=== PATIENT | male | born 1945 | race Caucasian/White ===

== ENCOUNTER 2021-10-31 07:02 | Day surgery (SDC) | payer MEDICARE, BC, SELFPAY ==
[2021-10-23 14:16] VITALS: BMI 27.8
[2021-10-31 07:17] VITALS: BP 146/74; PULSE 86; RESP 18; TEMP 36.4; O2SAT 96
--- NOTE | 2021-10-31 07:32 | P.CONAN_ITS ---
HPI - Anesthesia Eval Consult details Narrative: 75 M for colonoscopy CAD s/p CABG smoker [facility] Past Medical History Medical History CAD (coronary artery disease) Chronic renal insufficiency, stage III (moderate) Elevated cholesterol Emphysema lung HTN (hypertension) Hx of basal cell carcinoma Hx of bronchitis Hx of femoral artery thrombosis Myocardial infarction Peripheral arterial occlusive disease Pulmonary nodule Smoker Family History Family history of problems with anesthesia: No Surgical History Surgical History History of vascular surgery Hx of CABG Hx of colonoscopy Hx of right inguinal hernia repair History of Problems with Anesthesia: No Social History Social History Are you a primary clinical care coordinator to a significant other at home: No Do you presently have visiting nurse or other home services: No Patient Tobacco Use Status: Current everyday Tobacco user Tobacco use type: Cigarette Cigarettes Per Day: 6 Have you been hit, kicked, punched, or otherwise hurt by someone within the past year? If so, by whom?: No Are you DNR?: No Advance Directives: No Advance Directives Information Provided: Yes Advance Directives on File: No Meds Allergies Allergy/AdvReac Type Severity Reaction Status Date / Time No Known Allergies Allergy Verified 10/23/21 14:14 Active Medications: Current Medications Sodium Biphosphate/Sodium Phosphate (Sodium Phosphate,Vigo-Dibasic 133 Ml Enema) 133 ml IN ONCE PRN PRN Reason: Poor Colonoscopy Prep Results Home Medications Medication Instructions Recorded Confirmed Last Taken Type amlodipine 10 mg tablet 10 mg PO DAILY 10/23/21 10/23/21 Unknown History aspirin 81 mg chewable tablet 81 mg PO DAILY 10/23/21 10/23/21 Unknown History hydrochlorothiazide 12.5 mg tablet 12.5 mg PO DAILY 10/23/21 10/23/21 Unknown History losartan 100 mg tablet 100 mg PO DAILY 10/23/21 10/23/21 Unknown History metoprolol succinate 100 mg 100 mg PO DAILY 10/23/21 10/31/21 10/31/21 History tablet,extended release 24 hr mirtazapine 15 mg tablet 15 mg PO BEDTIME 10/23/21 10/23/21 Unknown History pravastatin 40 mg tablet 40 mg PO DAILY 10/23/21 10/23/21 Unknown History Exam Exam Date and Time: October 31, 2021 0732 Height,Weight and Vital Signs: Height 5 ft 4 in Weight 73.482 kg Last Vital Signs Temp 97.6 F 10/31/21 07:17 Pulse 86 10/31/21 07:17 Resp 18 10/31/21 07:17 BP 146/74 H 10/31/21 07:17 Pulse Ox 96 10/31/21 07:17 Airway Mallampati Class: II TM Dist: >3cm Neck ROM: Full Loose/Missing/Broken Teeth: Yes (Multiple missing , poor dentition ) Heart: S1, S2 Lungs: b/l breath sounds Assessment and Plan Assessment Anesthesia Assessment: Anesthesia Plan Discussed and Chart Reviewed Final Anesthetic Review Family History of Problems with Anesthesia: No History of Problems with Anesthesia: No NPO: Yes ASA Class: III Final Preanesthetic Review: Meds/Allgs Chart Reviewed, Consent Obtained/Reviewed and Anes Risks/Benef Reviewed Patient Risk: High Procedure Risk: Intermediate Anesthetic Plan Anesthetic Plan: MAC: Disposition: Standard PACU
[2021-10-31] MEDS: Lactated Ringers 1,000 ML 80 ML IVCONT (08:22)
[2021-10-31 09:24] VITALS: BP 83/42; PULSE 58; RESP 12; TEMP 36.1; O2SAT 93
--- NOTE | 2021-10-31 09:25 | P.BOP_ITS ---
Brief Operative Note Date of Service: 10/31/21 Pre-op diagnosis: Screening Post-op diagnosis: other (Colon polyp) Procedure: Colonoscopy to the cecum with biopsies, and bx/removal of polyp Surgeon: Víctor Chen Anesthesia: MAC Was an [employer] used for this Procedure?: No Estimated blood loss (mL): 2.0 Pathology: other (A. Polyp at 20cm B. Proximal ascending colon, R/O polyp vs. Inflammation) Condition: stable Disposition: PACU
[2021-10-31 09:39] VITALS: BP 92/52; PULSE 54; RESP 16; O2SAT 95
[2021-10-31 09:54] VITALS: BP 103/43; PULSE 55; RESP 18; TEMP 36.1; O2SAT 94
--- NOTE | 2021-10-31 20:26 | OP_ITS ---
SURGEON: Víctor Chen MD INDICATIONS: The patient presents for evaluation of colorectal cancer screening and prior history of tubular adenomas of the colon. Full consent was obtained from him for this, including risks of bleeding and perforation. PREOPERATIVE DIAGNOSIS: POSTOPERATIVE DIAGNOSIS: PROCEDURE PERFORMED: Colonoscopy to the cecum with biopsy and removal of polyp, and biopsies. ESTIMATED BLOOD LOSS: COMPLICATIONS: ANESTHESIA: Monitored anesthesia care. ASSISTANTS: SPECIMENS: PREOPERATIVE DIAGNOSES: Colorectal cancer screening and personal history of tubular adenoma of the colon. POSTOPERATIVE DIAGNOSES: Colorectal cancer screening and personal history of tubular adenoma of the colon, colon polyp, diverticulosis and internal hemorrhoids. DESCRIPTION OF PROCEDURE: The patient was placed in the left lateral decubitus position. The digital rectal exam revealed no abnormalities. The Olympus video pediatric colonoscope was entered into the rectum and advanced to the cecum with the assistance of abdominal wall pressure. Once in the cecum, I did identify normal-appearing cecal pouch with appendiceal orifice and a normal-appearing ileocecal valve. The entire cecum appeared normal. There was transillumination of light deep in the right lower quadrant. The scope was slowly withdrawn assessing all mucosal surfaces carefully. Preparation was excellent. In the proximal ascending colon on a fold, was an area of some edema and some inflammatory changes, but I did not think this definitively represented polyp tissue nor neoplasm. I did obtain several biopsies from it. It was quite soft. I think this probably represented some inflammatory changes from the prep. At 20 cm was an approximately 3 or 4 mm polyp, which was biopsied and completely removed with cold biopsy forceps. I did not visualize any other polyps, colitis, nor angiodysplasia. There was a mild amount of sigmoid diverticulosis. In the rectum, scope was retroflexed visualizing internal hemorrhoids, but no other pathology. The rectal mucosa appeared normal. Scope was straightened and withdrawn from the patient. He tolerated the procedure well and was returned to recovery area in stable condition. IMPRESSION: 1. Colon polyp, status post biopsy removal. 2. Rule out area of inflammation in the proximal ascending colon. 3. Diverticulosis. 4. Internal hemorrhoids. PLAN: The results of the biopsies will be checked. Assuming the area in the ascending colon is not a polyp tissue or neoplasm then I do not think he will need any further colonoscopies for screening given his age and these findings. He was advised to resume his aspirin tomorrow. He will otherwise see me on a p.r.n. basis. MD AGNES Guevara/MARISOL / [id number] MTDD
== END 2021-10-31 10:34 | disposition home or self-care (01) ==
PROVIDERS: PCP Internal Medicine; Visit Provider Internal Medicine
PROC: 0DJD8ZZ Inspection of Lower Intestinal Tract, Via Natural or Artificial Opening Endoscopic (ICD-10-PCS; CPT 45378; principal; 2021-10-31 08:20)
DX: Z12.11 Encounter for screening for malignant neoplasm of colon (principal); Z86.010 Personal history of colon polyps; K63.5 Polyp of colon; K57.30 Diverticulosis of large intestine without perforation or abscess without bleeding; K64.8 Other hemorrhoids; I10 Essential (primary) hypertension; E78.5 Hyperlipidemia, unspecified; I25.10 Atherosclerotic heart disease of native coronary artery without angina pectoris; Z95.1 Presence of aortocoronary bypass graft; J40 Bronchitis, not specified as acute or chronic; Z79.899 Other long term (current) drug therapy; Z79.82 Long term (current) use of aspirin; F17.200 Nicotine dependence, unspecified, uncomplicated
CPT/HCPCS: 45380; 88305